=== PATIENT | male | born 1960 | race Two or more races ===

== ENCOUNTER 2021-01-10 12:52 | Emergency (ER) | payer OTHER ==
[~2021-01-10] VITALS: Ht 177.8 cm; Wt 80.3 kg
[2021-01-10] MEDS ORDERED: CARVEDILOL ER40 MG (13:15)
[2021-01-10] MEDS ORDERED: HYDRODIURIL12.5 MG (13:16)
[2021-01-10] MEDS ORDERED: BENAZEPRIL HCL20 MG (13:16)
== END 2021-01-10 15:26 | disposition home or self-care (01) ==
LOC: ER 12:52
DX: S61.421A Laceration with foreign body of right hand, initial encounter (principal); W45.8XXA Other foreign body or object entering through skin, initial encounter; Y93.89 Activity, other specified; Y92.89 Other specified places as the place of occurrence of the external cause; Y99.8 Other external cause status